=== PATIENT | male | born 1975 | race Caucasian/White ===

== ENCOUNTER 2020-01-13 09:23 | Emergency (ER) | payer OTHER ==
[2020-01-13] MEDS ORDERED: CefTRIAXone/D5W-Rocephin 1gm 50 ML IV ONE (10:25)
[2020-01-13 10:46] VITALS: BP 100/57
[2020-01-13] MEDS ORDERED: AMOX-117 PO (10:51)
== END 2020-01-13 11:27 | disposition home or self-care (01) ==
LOC: ER 09:24
DX: L03.211 Cellulitis of face (principal); Z79.899 Other long term (current) drug therapy
CPT/HCPCS: 96365; 99284; J0696; 96372